=== PATIENT | male | born 1975 | race Caucasian/White ===

== ENCOUNTER 2019-03-04 13:19 | Emergency (ER) | payer BC ==
[2019-03-04 13:58] VITALS: BP 150/85
[2019-03-04] MEDS ORDERED: Ketorolac INJ* 30 MG/ML 1 ML VIAL IM ONE (14:06)
--- NOTE | 2019-03-04 14:30 | UC ---
Back Pain HPI - HPI Summary HPI Summary: Patient was doing some cleaning at home on Monday when he felt mild right lower back pain. States he was better yesterday but then today he moved just the right way" and developed right sided low back pain again. He has very minimal shooting pain down his right buttock. He denies any saddle anesthesia, no problems urinating or with bowel movements. - History of Current Complaint Chief Complaint: UCBackPain Stated Complaint: LOWER RIGHT BACK PAIN Time Seen by Provider: 03/04/19 13:58 Hx Obtained From: Patient Onset/Duration: Gradual Onset Timing: Intermittent - Right lower back pain especially with twisting or bending. Denies any saddle anesthesia. No numbness or Osvaldo in extremities. Pain Intensity: 4 Character: Dull, Aching Aggravating Factor(s): Movement, Bending Alleviating Factor(s): Rest Associated Signs And Symptoms: Negative: Weakness, Numbness, Tingling, Flank Pain, Bladder Incontinence, Bowel Incontinence - Allergies/Home Medications Allergies/Adverse Reactions: Allergies Allergy/AdvReac Type Severity Reaction Status Date / Time No Known Allergies Allergy Verified 03/04/19 13:58 PMH/Surg Hx/FS Hx/Imm Hx Previously Healthy: Yes - Surgical History Surgical History: Yes Surgery Procedure, Year, and Place: [place], R arm fx repair - Family History Known Family History: Positive: Non-Contributory - Social History Alcohol Use: Weekly Substance Use Type: None Smoking Status (MU): Never Smoked Tobacco Review of Systems All Other Systems Reviewed And Are Negative: Yes Motor: Positive: Negative Neurovascular: Positive: Negative Musculoskeletal: Positive: Other: - Pain right lower back mostly with movement. Neurological: Positive: Negative Is Patient Immunocompromised?: No Physical Exam Triage Information Reviewed: Yes Appearance: Well-Appearing, No Pain Distress, Well-Nourished Vital Signs: Initial Vital Signs Temp 98.5 F 03/04/19 13:42 Pulse 72 03/04/19 13:42 Resp 16 03/04/19 13:42 BP 150/85 03/04/19 13:42 Pulse Ox 100 03/04/19 13:42 Vital Signs Reviewed: Yes Respiratory: Positive: Lungs clear, Normal breath sounds, No respiratory distress, No accessory muscle use Cardiovascular: Positive: RRR, No Murmur, Pulses Normal, Brisk Capillary Refill Musculoskeletal: Positive: Strength Intact, ROM Intact, Other: - Good peripheral pulses neuro sensation capillary refill, good leg strength against resistance, reflexes +2 at the knee, negative straight leg raise. Mild pain on palpation to the right lower paraspinal muscle area. Neurological: Positive: Alert, Muscle Tone Normal Psychological Exam: Normal Skin Exam: Normal Back Pain Course/Dx - Course Course Of Treatment: He was given Toradol 30 mg IM here and he is to avoid movements that cause pain. He can take Flexeril 3 times a day but was advised no drinking alcohol, driving or operating machinery while taking that. He may take Motrin 3 times a day with food. He is to follow-up with the [facility] in 3 or 4 days if no improvement. - Differential Dx/Diagnosis Provider Diagnosis: Low back strain Discharge - Sign-Out/Discharge Documenting (check all that apply): Patient Departure All imaging exams completed and their final reports reviewed: No Studies - Discharge Plan Condition: Fair Disposition: HOME Prescriptions: Cyclobenzaprine TAB* [Flexeril 10 MG TAB*] 10 mg PO TID PRN #15 tab PRN Reason: Pain Ibuprofen TAB* [Motrin TAB* 600 MG] 600 mg PO Q8H PRN #21 tab PRN Reason: Pain Patient Education Materials: Low Back Strain (ED) Referrals: [facility] [Outside] No Primary Care Phys,NOPCP [Primary Care Provider] - Additional Instructions: Avoid movements that cause pain, do not drink alcohol, drive or operate machinery while taking the Flexeril. Apply ice or heat to the sore areas. Follow-up with the [facility] if no improvement in 3 or 4 days. - Billing Disposition and Condition Condition: FAIR Disposition: Home - Attestation Statements Provider Attestation: I was available for consult. This patient was seen by the MARILEE. The patient was not presented to, seen by, or examined by me. -Francisco
== END 2019-03-04 14:28 | disposition home or self-care (01) ==
LOC: UCCORT 13:19
DX: S39.012A Strain of muscle, fascia and tendon of lower back, initial encounter (principal); X58.XXXA Exposure to other specified factors, initial encounter; Y92.9 Unspecified place or not applicable
CPT/HCPCS: 96372; 99201; G0463; J1885